=== PATIENT | female | born 1995 ===

== ENCOUNTER 2016-08-28 13:19 | Emergency (ER) | payer BC, OTHER ==
[~2016-08-28] VITALS: Ht 162.6 cm; Wt 84.2 kg
[2016-08-28] MEDS ORDERED: ARIP5TAB5 PO (13:41)
[2016-08-28] MEDS ORDERED: ESCI10TA PO (13:41)
[2016-08-28] MEDS ORDERED: HYDROmorphone 1 MG/ML (DILAUDID) SYRINGE IV ONE (14:10)
[2016-08-28] MEDS ORDERED: SODIUM CHLORIDE FLUSH 10 ML SYR IV PRN (14:10)
[2016-08-28] MEDS ORDERED: ONDANSETRON 2 MG/ML (Z0FRAN) 2 ML VIAL IV ONE ×2 (14:10→17:10)
[2016-08-28] MEDS ORDERED: SODIUM CHLORIDE FLUSH 3 ML SYR IV PRN (14:10)
[2016-08-28 14:32] LABS: MEAN CORPUSCULAR HEMOGLOBIN 29.2 PG (26.0-34.0); MEAN CORPUSCULAR VOLUME 82 FL (80-100); MEAN PLATELET VOLUME 10.5 FL (6.0-9.5); PLATELET COUNT 376 10^3uL (150-450); WHITE BLOOD COUNT 20.75 10^3uL (4.0-11.0)
[2016-08-28 14:41] LABS: BAND NEUTROPHILS % 6 % (0-6); EOSINOPHILS % 0 % (0-4); LYMPHOCYTES # 1.9 #; MEAN CORPUSCULAR HGB CONC 35.5 g/dL (31.0-37.0); MONOCYTES # 0.4 #; MONOCYTES % 2 % (3-11); RBC MORPH NORMAL (NORMAL); SEGMENTED NEUTROPHILS % 83 % (51-67); TOTAL CELLS COUNTED 100
[2016-08-28 14:43] LABS: ALBUMIN 5.4 g/dL (3.4-5.0); ANION GAP 22.5 MEQ/L (3-15); CALCULATED IONIZED CALCIUM 3.7 mg/dL (3.8-4.6); TOTAL PROTEIN 9.5 g/dL (6.4-8.5)
[2016-08-28 16:11] LABS: BILIRUBIN,URINE Negative (Negative); COLOR,URINE Yellow; GLUCOSE, URINE (UA) Negative (Negative); LEUKOCYTE ESTERASE ,URINE Negative (Negative); PH,URINE 5.5 (5.0 - 8.0); UROBILINOGEN,URINE 0.2 mg/dL (0.2-1.0)
--- NOTE | 2016-08-28 16:56 | Diagnostic Imaging Report ---
INDICATION: Abdominal Pain. EXAM: Abdominal series performed in routine fashion with a frontal chest radiograph and supine upper abdominal films. FINDINGS: The heart and mediastinal silhouette are normal in appearance. The lungs are clear. There is no pneumothorax or pleural fluid. There is no free intraperitoneal air. The abdominal bowel gas pattern is nonspecific with no sign of obstruction. There are no suspicious calcifications. There are surgical clips in the right upper quadrant. IMPRESSION: No sign of free air or bowel obstruction. No acute pulmonary infiltrate. Evidence of previous cholecystectomy. Dictated by: Dictated on workstation # [id number]
[2016-08-28 17:38] LABS: CLARITY,URINE Slightly Cloudy
[2016-08-28 18:07] VITALS: BP 122/22
[2016-08-28] MEDS ORDERED: PROMETHAZINE HCL INJ 12.5 MG in SODIUM CHLORIDE 25 ML IV PRN (18:10)
[2016-08-28] MEDS ORDERED: ACETAMINOPHEN 325 MG TAB (TYLENOL) PO PRN (18:10)
[2016-08-28] MEDS ORDERED: NICOTINE 21 MG (NICODERM) PATCH TD SCH (18:10)
[2016-08-28] MEDS ORDERED: ONDANSETRON 4 MG (ZOFRAN) ORAL DISSOLVE TAB PO PRN (18:10)
[2016-08-28] MEDS ORDERED: MAG HYDROX/AL HYDROX/SIMETH 200-200-20/5 ML (MAG-AL PLUS) 30 ML UDC PO PRN (18:10)
[2016-08-28] MEDS ORDERED: CALCIUM CARBONATE CHEWABLE 300 MG (TUMS) TABLET PO PRN (18:10)
[2016-08-28] MEDS ORDERED: GI COCKTAIL 55 ML UDC PO ONE (18:25)
--- NOTE | 2016-08-28 18:34 | History and Physical (E) ---
History & Physical PCP: Carrie Vega MD [address] [place] [address] CC: Nausea/vomiting HPI Annabelle Hoyos is a 21 year old female admitted from ED 08/28 where she presented with complaint of nausea/vomiting since this AM. In ED, afebrile, HR 105, RR 18, BP 149/96. WBC 20.75 with 83% N and 6% B. Na elevated at 152. Transaminases not elevated. Lipase normal. Serum negative. UA is still pending. Acute abdominal series was unremarkable. She was given NS bolus, hydromorphone, ondansetron. On arrival to unit, awake, alert, interactive, oriented. Says symptoms started suddenly this AM around 0900. Had not had anything for breakfast. Last meal was the night prior, chicken wings and salad. No leftovers consumed recently. No exposure to sick contacts. No recent travel. Has had similar symptoms before, "stomach flu." Abdominal pain is mid-epigastric and started after she started vomiting. No fever. Has felt chilled. Diarrhea but not bloody. No rash. Was just seen by PCP 1 week ago for UTI symptoms. PCP checked UA but culture didn't come back until Thursday and antibiotic (Augmentin) was prescribed on Thursday. Patient states she has already taken 5 doses. PMH * UTI 07/2016 * Depression * tobacco abuse PSH * tonsillectomy * cholecystectomy ALLERGIES: Please see list at end of report. HOME MEDICATIONS: Please see list at end of report. FH Mom is healthy. Has arthritis. Father is healthy. SH Lives with step-mother in [place]. Just recently moved there from [place]. Smokes. Drinks alcohol occasionally. No drug use currently but has used marijuana and cocaine in the past. No children. Works at [employer]. ROS CONSTITUTION: Denies weight loss or gain. HEENT: No change in vision or hearing. No sores in mouth, sore throat. CV: No chest pain, palpitations. PULM: Some congestion, cough. GI: Per HPI, exam. : No dysuria. LMP approximately 08/18/2016. MS: No new muscle or joint aches and pains. NEURO: No numbness or tingling. No weakness. INTEG: No rashes, lesions, or sores. ENDO: No heat or cold intolerance. No polydipsia or polyuria. HEME/LYMPH: No easy bruising or bleeding. No swollen glands. PSYCH: No change in mood or behavior. OBJECTIVE Vital Signs Date Time Temp Pulse Resp B/P Pulse Ox O2 Delivery O2 Flow Rate FiO2 08/28/16 17:13 101 16 117/70 98 08/28/16 13:20 96.8 Room Air GEN: Awake, alert, oriented, NAD at present. HEENT: EOMI, clear sclerae, dry oral mucosa. CV: RRR S1 S2 normal with no murmur LUNGS: CTA B ABD: Mild epigastric tenderness to palpation. Hypoactive bowel sounds. EXTR: No C/C/E. Normal peripheral pulses. INTEG: No rash. NEURO: No focal motor neuro deficit. Weight: 83.7 kg Laboratory Results-14 Days 08/28/16 14:20: Absolute Band Neutrophils 1.2, Alanine Aminotransferase (ALT/SGPT) 35, Albumin 5.4H, Albumin/Globulin Ratio 1.317, Alkaline Phosphatase 101, Anion Gap 22.5H, Aspartate Amino Transf (AST/SGOT) 27, BUN/Creatinine Ratio 12, Band Neutrophils % 6, Basophils # (Auto) , Basophils # (Manual) 0.0, Basophils % (Manual) 0, Basophils (%) (Auto) , Blood Morphology Comment Normal, Blood Urea Nitrogen 10, Calcium Level 10.0, Calcium/Ionized Calcium Ratio 3.7L, Calculated Osmolality 292, Carbon Dioxide Level 28, Chloride Level 105, Creatinine 0.84, Differential Total Cells Counted 100, Eosinophils # 0.0, Eosinophils # (Auto) , Eosinophils % (Manual) 0, Eosinophils (%) (Auto) , Estimat Glomerular Filtration Rate 101.7 , Estimated GFR (Non- 84.0, Glucose Level 118H, Hematocrit 44.50 , Hemoglobin 15.8H, Lipase 57, Lymphocytes # 1.9, Lymphocytes # (Auto) , Lymphocytes % (Manual) 9L, Lymphocytes (%) (Auto) , Mean Corpuscular Hemoglobin 29.2, Mean Corpuscular Hemoglobin Concent 35.5, Mean Corpuscular Volume 82, Mean Platelet Volume 10.5H, Monocytes # 0.4, Monocytes # (Auto) , Monocytes % ( Manual) 2L, Monocytes (%) (Auto) , Neutrophils # 17.2, Neutrophils # (Auto) , Neutrophils (%) (Auto) , Platelet Count 376, Potassium Level 4.1, Red Blood Count 5.42H, Red Cell Distribution Width 13.3, Segmented Neutrophils % 83H, Serum Test, Qualitative Negative, Sodium Level 152H, Total Bilirubin 0.6, Total Protein 9.5H, Urine Bilirubin [Pending], Urine Blood [Pending], Urine Clarity [Pending], Urine Collection Type [Pending], Urine Color [Pending] , Urine Glucose (UA) [Pending], Urine Ketones [Pending], Urine Leukocyte Esterase [Pending], Urine Nitrite [Pending], Urine Protein [Pending], Urine Specific [place] [Pending], Urine Urobilinogen [Pending], Urine pH [Pending], White Blood Count 20.75H IMAGING 08/28/16 ACUTE ABD SERIES INDICATION: Abdominal Pain. EXAM: Abdominal series performed in routine fashion with a frontal chest radiograph and supine upper abdominal films. FINDINGS: The heart and mediastinal silhouette are normal in appearance. The lungs are clear. There is no pneumothorax or pleural fluid. There is no free intraperitoneal air. The abdominal bowel gas pattern is nonspecific with no sign of obstruction. There are no suspicious calcifications. There are surgical clips in the right upper quadrant. IMPRESSION: No sign of free air or bowel obstruction. No acute pulmonary infiltrate. Evidence of previous cholecystectomy. ASSESSMENT Annabelle Hoyos is a 21 year old female admitted from ED 08/28 with nausea, vomiting, abdominal pain, dehydration, leukocytosis, and diarrhea, all attributed to gastroenteritis based on findings and history. She was admitted for rehydration and symptom control. PLAN * SIRS: Treat underlying problems. * Gastroenteritis: Supportive care. * Dehydration: NS bolus given in ED. Additional liter maintenance. * Nausea/Vomiting: Ondansetron, promethazine * Abdominal Pain: Ketorolac, acetaminophen. Trial GI cocktail. * F/E/N: IVF as above. Liquid diet, advance as tolerated. * Prophylaxis: Ambulate * Code Status: Full * Dispo: observation. Likely discharge in AM if improving. CHRONIC * Depression: Citalopram (sub for escitalopram), aripiprazole * Tobacco abuse: nicotine patch. 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 NETTIE GARCIA MD Aug 28, 2016 17:33
[2016-08-28 18:35] VITALS: BP_SYST 122; BP_DIAS 22; BP_DIAS 72
[2016-08-28] MEDS: KETOROLAC 15 MG/ML (TORADOL) 1 ML VIAL IV PRN (18:51)
[2016-08-28] MEDS ORDERED: MAG HYDROX/AL HYDROX/SIMETH 400-400-40/5 ML (MAG-AL PLUS XS) 30 ML UDC ONE (19:31)
[2016-08-28] MEDS ORDERED: BELLADONNA/PHENOBARBITAL ELIXIR (DONNATAL) 10 ML UDC ONE (19:32)
[2016-08-28] MEDS ORDERED: LIDOCAINE 2% VISCOUS 20ML UDC PO ONE (19:32)
[2016-08-29 00:19] VITALS: BP 103/59
[2016-08-29] MEDS: ONDANSETRON 2 MG/ML (Z0FRAN) 2 ML VIAL IV PRN ×2 (02:34→08:10)
[2016-08-29] MEDS: KETOROLAC 15 MG/ML (TORADOL) 1 ML VIAL IV PRN (02:34)
[2016-08-29] MEDS ORDERED: SODIUM CHLORIDE FLUSH 10 ML SYR IV PRN ×2 (02:40→14:10)
[2016-08-29] MEDS ORDERED: SODIUM CHLORIDE FLUSH 3 ML SYR IV PRN ×2 (02:40→14:10)
[2016-08-29 06:23] LABS: BASOPHILS % (AUTO) 0 % (0-2); EOSINOPHILS # (AUTO) 0.1 10^3uL; EOSINOPHILS % (AUTO) 1 % (0-4); LYMPHOCYTES # (AUTO) 2.9 X10^3; MEAN CORPUSCULAR HEMOGLOBIN 29.8 PG (26.0-34.0); MEAN CORPUSCULAR HGB CONC 35.2 g/dL (31.0-37.0); MEAN CORPUSCULAR VOLUME 85 FL (80-100); MEAN PLATELET VOLUME 11.2 FL (6.0-9.5); MONOCYTES # (AUTO) 0.9 X10^3; MONOCYTES % (AUTO) 7 % (3-11); NEUTROPHILS # (AUTO) 8.9 X10^3; NEUTROPHILS % (AUTO) 69 % (51-67); PLATELET COUNT 246 10^3uL (150-450); WHITE BLOOD COUNT 12.83 10^3uL (4.0-11.0)
[2016-08-29 06:52] LABS: ALBUMIN 3.4 g/dL (3.4-5.0); ANION GAP 9.4 MEQ/L (3-15)
[2016-08-29] MEDS ORDERED: AC325T PO (07:31)
[2016-08-29] MEDS ORDERED: ONDAN4ODT PO (07:31)
--- NOTE | 2016-08-29 07:40 | Discharge Instructions (E) ---
Discharge Instructions Instructions * You were evaluated and treated for abdominal pain, nausea/vomiting, and diarrhea, all likely due to gastroenteritis. This is commonly caused by a virus but in some cases can be bacterial. Symptoms should resolve on their own and you should much better in the next two days. * Be sure to drink plenty of fluids. Your appetite will return gradually. * Be sure to use good jubj-bji-nwdph hand washing to avoid spreading infection to others. * Quitting smoking is one of the best things you can do for your health. Talk to your doctor about ways she can help. Review the provided handout for details. Activity Instructions As tolerated. Doctor's Appointment Follow-up with your primary care doctor as needed. Discharge Diet: Regular NETTIE GARCIA MD Aug 29, 2016 07:35
[2016-08-29 07:46] VITALS: BP 110/60
[2016-08-29] MEDS ORDERED: POTASSIUM CHLORIDE ER 20 MEQ TABLET PO ONE (07:50)
[2016-08-29] MEDS ORDERED: NICOTINE PATCH REMOVAL TOP SCH (08:59)
[2016-08-29] MEDS ORDERED: ARIPIPRAZOLE 5 MG PO SCH (09:00)
[2016-08-29] MEDS ORDERED: CITALOPRAM 10 MG (CELEXA) TABLET PO SCH (09:00)
--- NOTE | 2016-08-30 15:53 | Discharge Summary (E) ---
Discharge Summary (E) Admit Date/Time Aug 28, 2016 at 17:33 Discharge Date/Time Aug 29, 2016 at 09:55 Admitting Provider Nettie Hewitt MD Primary Care Provider Carrie Vega MD [address] [place] [address] [address] [place] [address] Attending Provider Nettie Hewitt MD Consulting Provider History and Present Illness Annabelle Hoyos is a 21 year old female admitted from ED 08/28 with nausea, vomiting, abdominal pain, dehydration, leukocytosis, and diarrhea, all attributed to gastroenteritis based on findings and history. She was admitted for rehydration and symptom control. She improved rapidly with supportive care and was discharged home in improved, stable condition. Hospital Course and Treatment * SIRS: Resolved. Treated underlying problems. * Gastroenteritis: Supportive care. Handouts provided. * Dehydration: NS bolus given in ED. Additional liter maintenance. * Nausea/Vomiting: Ondansetron, promethazine. * Abdominal Pain: Ketorolac, acetaminophen. Trial GI cocktail was helpful. * UTI: Diagnosed prior to admit. She had already taken 5 doses of amox/clav. No evidence of UTI on this admit, so suggested she did not need any more antibiotic. * F/E/N: IVF as above. Liquid diet, advanced as tolerated. * Prophylaxis: Ambulate * Code Status: Full * Dispo: observation. Discharged home. CHRONIC * Depression: Citalopram (sub for escitalopram), aripiprazole * Tobacco abuse: nicotine patch. 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 HEENT: EOMI, clear sclerae, dry oral mucosa. CV: RRR S1 S2 normal with no murmur LUNGS: CTA B ABD: Mild epigastric tenderness to palpation, improved since admit. Active bowel sounds. EXTR: No C/C/E. Normal peripheral pulses. INTEG: No rash. NEURO: No focal motor neuro deficit. Laboratory/Radiology Data WBC 20.75 on admit, improved to 12.83 before discharge with no bandemia. Na 152 on admit but improved with IVF to 140. K 3.3 so PO supplement was given prior to discharge. UA negative for evidence of UTI. Discharge Disposition Discharged home. Instructions * You were evaluated and treated for abdominal pain, nausea/vomiting, and diarrhea, all likely due to gastroenteritis. This is commonly caused by a virus but in some cases can be bacterial. Symptoms should resolve on their own and you should much better in the next two days. * Be sure to drink plenty of fluids. Your appetite will return gradually. * Be sure to use good oooc-hgy-xrfmn hand washing to avoid spreading infection to others. * Quitting smoking is one of the best things you can do for your health. Talk to your doctor about ways she can help. Review the provided handout for details. Activity Instructions As tolerated. Appointments Follow-up with your primary care doctor as needed. Discharge Diet: Regular Discharge Medications New Medications: Acetaminophen (Acetaminophen) 325 Mg Tablet 650 MG PO Q6H PRN PAIN #0 Ref 0 TAB Ondansetron HCl (Zofran ODT) 4 Mg Tab.rapdis 4 MG PO Q6HR PRN NAUSEA #15 Ref 0 TAB Continued Medications: Aripiprazole (Abilify) 5 Mg Tablet 5 MG PO DAILY TAB Escitalopram Oxalate (Lexapro) 10 Mg Tablet 10 MG PO DAILY TAB Discharge Diagnosis See list above. Problems: Copies to: End of Report . NETTIE HEWITT MD Aug 30, 2016 15:49
== END 2016-08-29 09:55 | disposition home or self-care (01) ==
LOC: ED 13:30 → MED/SURG 17:33 → UNDOADMOB 17:33 → MED/SURG 17:34 → UNDODISOB 08-29 09:55
PROVIDERS: ADMIT Internal Medicine; ATTEND Internal Medicine
DX: K52.9 Noninfective gastroenteritis and colitis, unspecified (principal); E86.0 Dehydration; D72.820 Lymphocytosis (symptomatic); R19.7 Diarrhea, unspecified; R11.2 Nausea with vomiting, unspecified; F17.210 Nicotine dependence, cigarettes, uncomplicated
CPT/HCPCS: 36415; 74022; 80053; 80069; 81003; 83690; 84703; 85025; 86140; 96361; 96374; 96375; 96376; 99218; 99284; J1170; J1885; J2405; J7030

== ENCOUNTER 2016-10-07 22:23 | Emergency (ER) | payer BC ==
[~2016-10-07] VITALS: Ht 162.6 cm; Wt 73.0 kg
[~2016-10-07 22:23] MED LIST: AC325T PO; ARIP5TAB5 PO; ESCI10TA PO; ONDAN4ODT PO
--- OUTSIDE RECORDS SUMMARY | 2016-10-07 22:28 | XMS REPORT | Continuity of Care Document ---
Author Author [facility] Address Unknown Phone Unavailable Support Name Relationship Address Phone NETTIE GARCIA MD Caregiver [address] [place] [address] LOTUS PORTILLO MD Caregiver [address] [place], [place] [address] ROMAIN EVONNE Next Of Kin [phone] [place], [place] [address] Insurance Providers Payer Name Policy Number Subscriber Name Relationship [facility] [id number] Keely Lion 19 Mother Other1 [id number] RomainNancyd Ary 19 Father Advance Directives Directive Response Recorded Date/Time Advanced Directives No 08/28/16 6:42pm Chief Complaint and Reason for Visit Chief Complaint HYPERNATREMIA, VOMITING Reason for Visit Gastroenteritis Problems Active Problems Medical Problem Onset Date Status Gastroenteritis Unknown Acute Medications Current Home Medications Medication Dose Units Route Directions Days/Qty Instructions Start Date Escitalopram Oxalate 10 Mg 10 Mg ORAL Daily 08/28/16 Aripiprazole 5 Mg 5 Mg ORAL Daily 08/28/16 Acetaminophen (Tylenol) 325 Mg 650 Mg ORAL Every 6 Hours as needed for Pain 0 08/29/16 Ondansetron Hcl 4 Mg 4 Mg ORAL Every 6 Hr On Schedule as needed for Nausea 15 08/29/16 Social History Query Response Start Date Stop Date Smoking Status Current every day smoker Hospital Discharge Instructions Patient's Instructions Instructions Instructions * You were evaluated and treated for abdominal pain, nausea/vomiting, and diarrhea, all likely due to gastroenteritis. This is commonly caused by a virus but in some cases can be bacterial. Symptoms should resolve on their own and you should much better in the next two days. * Be sure to drink plenty of fluids. Your appetite will return gradually. * Be sure to use good [id number]-[id number] hand washing to avoid spreading infection to others. * Quitting smoking is one of the best things you can do for your health. Talk to your doctor about ways she can help. Review the provided handout for details. Activity Instructions As tolerated. Doctor's Appointment Follow-up with your primary care doctor as needed. Discharge Diet: Regular Orders DISCHARGE: Discharge to:: HOME Home, Self Care Plan of Care Discharge Date 08/29/16 9:55am Disposition 01 HOME OR SELF-CARE Instructions/Education Provided Ondansetron Smoking: Not Just Harmful to Your Lungs and Heart Dangers of Secondhand Smoke Quitting Smoking for Teens and Young Adults Viral Gastroenteritis, Adult (DC) Prescriptions See Medication Section Care Plan and Goals See Discharge Instructions Section Functional Status Query Response Date Recorded Level of Conscious Alert Oriented x4 August 29, 2016 8:16am Movement Moves extremities August 29, 2016 8:16am Allergies, Adverse Reactions, Alerts No known allergies. Immunizations No immunization records. Vital Signs Acute Vital Signs Vital Response Date/Time Temperature (Fahrenheit) 98.6 08/29/2016 7:46am Pulse 89 bpm 08/29/2016 7:46am Respirations 16 08/29/2016 7:46am Height 5 ft 4 in Weight 185 lb Body Mass Index 31.0 kg/m^2 Results Laboratory Results Test Name Result Units Flags Reference Collection Date/Time Result Date/ Time Comments White Blood Count 12.83 10^3uL H 4.0-11.0 08/29/2016 5:40am 08/29/2016 6 :47am Red Blood Count 4.16 10^6uL 4.00-5.00 08/29/2016 5:40am 08/29/2016 6: 47am Hemoglobin 12.4 g/dL 12.0-15.5 08/29/2016 5:40am 08/29/2016 6:47am Hematocrit 35.20 % 35.00-45.00 08/29/2016 5:40am 08/29/2016 6:47am Mean Corpuscular Volume 85 FL 80-100 08/29/2016 5:40am 08/29/2016 6: 47am Mean Corpuscular Hemoglobin 29.8 PG 26.0-34.0 08/29/2016 5:40am 2016 6:47am Mean Corpuscular Hemoglobin Concent 35.2 g/dL 31.0-37.0 08/29/2016 5: 40am 08/29/2016 6:47am Red Cell Distribution Width 13.3 % 11.8-15.6 08/29/2016 5:40am 2016 6:47am Platelet Count 246 10^3uL 150-450 08/29/2016 5:40am 08/29/2016 6:47am Mean Platelet Volume 11.2 FL H 6.0-9.5 08/29/2016 5:40am 08/29/2016 6: 47am Neutrophils (%) (Auto) 69 % H 51-67 08/29/2016 5:40am 08/29/2016 6:47am Lymphocytes (%) (Auto) 22 % 20-46 08/29/2016 5:40am 08/29/2016 6:47am Monocytes (%) (Auto) 7 % 3-11 08/29/2016 5:40am 08/29/2016 6:47am Eosinophils (%) (Auto) 1 % 0-4 08/29/2016 5:40am 08/29/2016 6:47am Basophils (%) (Auto) 0 % 0-2 08/29/2016 5:40am 08/29/2016 6:47am Neutrophils # (Auto) 8.9 X10^3 08/29/2016 5:40am 08/29/2016 6:47am Lymphocytes # (Auto) 2.9 X10^3 08/29/2016 5:40am 08/29/2016 6:47am Monocytes # (Auto) 0.9 X10^3 08/29/2016 5:40am 08/29/2016 6:47am Eosinophils # (Auto) 0.1 10^3uL 08/29/2016 5:40am 08/29/2016 6:47am Basophils # (Auto) 0.0 10^3uL 08/29/2016 5:40am 08/29/2016 6:47am Differential Total Cells Counted 100 08/28/2016 2:20pm 08/28/2016 2 :41pm Segmented Neutrophils % 83 % H 51-67 08/28/2016 2:20pm 08/28/2016 2: 41pm Band Neutrophils % 6 % 0-6 08/28/2016 2:20pm 08/28/2016 2:41pm Lymphocytes % (Manual) 9 % L 20-46 08/28/2016 2:20pm 08/28/2016 2:41pm Monocytes % (Manual) 2 % L 3-11 08/28/2016 2:20pm 08/28/2016 2:41pm Eosinophils % (Manual) 0 % 0-4 08/28/2016 2:20pm 08/28/2016 2:41pm Basophils % (Manual) 0 % 0-2 08/28/2016 2:20pm 08/28/2016 2:41pm Neutrophils # 17.2 # 08/28/2016 2:20pm 08/28/2016 2:41pm Absolute Band Neutrophils 1.2 # 08/28/2016 2:20pm 08/28/2016 2:41pm Lymphocytes # 1.9 # 08/28/2016 2:20pm 08/28/2016 2:41pm Monocytes # 0.4 # 08/28/2016 2:20pm 08/28/2016 2:41pm Eosinophils # 0.0 # 08/28/2016 2:20pm 08/28/2016 2:41pm Basophils # (Manual) 0.0 # 08/28/2016 2:20pm 08/28/2016 2:41pm Blood Morphology Comment NORMAL NORMAL 08/28/2016 2:20pm 08/28/2016 2 :41pm Urine Collection Type CLEAN CATCH 08/28/2016 2:20pm 08/28/2016 7: 28pm Urine Color Yellow 08/28/2016 2:20pm 08/28/2016 5:38pm Urine Clarity Slightly Cloudy 08/28/2016 2:20pm 08/28/2016 5:38pm Urine pH 5.5 5.0 - 8.0 08/28/2016 2:20pm 08/28/2016 5:38pm Urine Specific [place] 1.020 1.005-1.030 08/28/2016 2:20pm 2016 5:38pm Urine Protein Negative Negative 08/28/2016 2:20pm 08/28/2016 5:38pm Urine Glucose (UA) Negative Negative 08/28/2016 2:20pm 08/28/2016 5: 38pm Urine Blood Negative Negative 08/28/2016 2:20pm 08/28/2016 5:38pm Urine Ketones Negative Negative 08/28/2016 2:20pm 08/28/2016 5:38pm Urine Nitrite Negative Negative 08/28/2016 2:20pm 08/28/2016 5:38pm Urine Bilirubin Negative Negative 08/28/2016 2:20pm 08/28/2016 5: 38pm Urine Urobilinogen 0.2 mg/dL 0.2-1.0 08/28/2016 2:20pm 08/28/2016 5: 38pm Urine Leukocyte Esterase Negative Negative 08/28/2016 2:20pm 2016 5:38pm Sodium Level 140 mmol/L # 135-150 08/29/2016 5:40am 08/29/2016 6:55am Potassium Level 3.3 mmol/L L 3.5-5.1 08/29/2016 5:40am 08/29/2016 6: 55am Chloride Level 107 mmol/L 98-108 08/29/2016 5:40am 08/29/2016 6:55am Carbon Dioxide Level 27 mmol/L 22-29 08/29/2016 5:40am 08/29/2016 6: 55am Anion Gap 9.4 MEQ/L 3-15 08/29/2016 5:40am 08/29/2016 6:55am Blood Urea Nitrogen 13 mg/dL 7-18 08/29/2016 5:40am 08/29/2016 6:55am Creatinine 0.74 mg/dL 0.6-1.2 08/29/2016 5:40am 08/29/2016 6:55am BUN/Creatinine Ratio 12 10-20 08/28/2016 2:20pm 08/28/2016 2:45pm Estimat Glomerular Filtration Rate 117.7 08/29/2016 5:40am 2016 6:55am Estimated GFR (Non- 97.3 08/29/2016 5:40am 2016 6:55am Glucose Level 83 mg/dL # 70-110 08/29/2016 5:40am 08/29/2016 6:55am Calculated Osmolality 292 mosm/L 280-300 08/28/2016 2:20pm 08/28/2016 2 :45pm Calcium Level 8.3 mg/dL # L 8.8-10.8 08/29/2016 5:40am 08/29/2016 6:55am Calcium/Ionized Calcium Ratio 3.7 mg/dL L 3.8-4.6 08/28/2016 2:20pm 07/2016 2:45pm Phosphorus Level 2.2 mg/dL L 2.4-4.9 08/29/2016 5:40am 08/29/2016 6: 55am Total Bilirubin 0.6 mg/dL 0.1-1.0 08/28/2016 2:20pm 08/28/2016 2:45pm Alkaline Phosphatase 101 U/L 38-126 08/28/2016 2:20pm 08/28/2016 2: 45pm Aspartate Amino Transf (AST/SGOT) 27 U/L 15-37 08/28/2016 2:20pm 2016 2:45pm Alanine Aminotransferase (ALT/SGPT) 35 U/L 30-65 08/28/2016 2:20pm 07/2016 2:45pm Total Protein 9.5 g/dL H 6.4-8.5 08/28/2016 2:20pm 08/28/2016 2:45pm Albumin 3.4 g/dL # 3.4-5.0 08/29/2016 5:40am 08/29/2016 6:55am Albumin/Globulin Ratio 1.317 1.1-1.8 08/28/2016 2:20pm 08/28/2016 2: 45pm Lipase 57 U/L 23-300 08/28/2016 2:20pm 08/28/2016 2:45pm C-Reactive Protein 0.90 mg/dL 0.0-0.9 08/29/2016 5:40am 08/29/2016 6: 55am Procedures No known history of procedures. Encounters Encounter Location Arrival/Admit Date Discharge/Depart Date Attending Provider Admitted Inpatient (obs) [facility] 08/28/16 5:33pm NETTIE GARCIA MD Recent Diagnosis Gastroenteritis
[2016-10-07 23:43] LABS: BASOPHILS % (AUTO) 1 % (0-2); EOSINOPHILS # (AUTO) 0.4 10^3uL; EOSINOPHILS % (AUTO) 3 % (0-4); LYMPHOCYTES # (AUTO) 4.5 X10^3; MEAN CORPUSCULAR HEMOGLOBIN 28.2 PG (26.0-34.0); MEAN CORPUSCULAR VOLUME 85 FL (80-100); MEAN PLATELET VOLUME 11.1 FL (6.0-9.5); MONOCYTES # (AUTO) 0.9 X10^3; MONOCYTES % (AUTO) 7 % (3-11); NEUTROPHILS # (AUTO) 6.8 X10^3; NEUTROPHILS % (AUTO) 53 % (51-67); PLATELET COUNT 295 10^3uL (150-450); WHITE BLOOD COUNT 12.75 10^3uL (4.0-11.0)
[2016-10-07 23:59] LABS: ALBUMIN 4.7 g/dL (3.4-5.0); ALKALINE PHOSPHATASE 78 U/L (38-126); ANION GAP 15.5 MEQ/L (3-15); BUN/CREATININE RATIO 14 (10-20); CALCULATED IONIZED CALCIUM 4.1 mg/dL (3.8-4.6); TOTAL PROTEIN 8.3 g/dL (6.4-8.5)
[2016-10-08 00:09] LABS: BILIRUBIN,URINE Negative (Negative); CLARITY,URINE Clear; COLOR,URINE Yellow; GLUCOSE, URINE (UA) Negative (Negative); LEUKOCYTE ESTERASE ,URINE Negative (Negative); UROBILINOGEN,URINE 0.2 mg/dL (0.2-1.0)
[2016-10-08 00:14] LABS: HCG,QUALITATIVE URINE Negative (Negative); URINE CENTRIFUGED VOLUME 12 mL
[2016-10-08 00:22] LABS: RBC,URINE 0-2 /HPF
[2016-10-08 00:23] LABS: AMPHETAMINE SCREEN, URINE Negative (Negative); CANNABINOID SCREEN, URINE Negative (Negative); METHAMPHETAMINE SCREEN URINE S NEGATIVE (NEGATIVE); OPIATE SCREEN URINE Negative (Negative); PROPOXYPHENE STAT NEGATIVE (NEGATIVE)
--- NOTE | 2016-10-08 01:08 | NUR ---
Spoke with [facility] hotline and a screener called back to let RN know pt does meet criteria for inpt and this RN needs to make the call to see if there are any beds available for pt
--- NOTE | 2016-10-08 01:12 | NUR ---
RN called [facility] and will fax the information to them and wait to hear back regarding pt possible admission to them
--- NOTE | 2016-10-08 01:37 | NUR ---
Spoke with patient and asked her if she was to leave here tonight would she go home and take some pills or attempt to hurt herself, she stated yes she would go home and take some pills and try to hurt herself.
[2016-10-08 02:36] VITALS: BP 120/83
== END 2016-10-08 02:43 | disposition short-term general hospital (02) ==
LOC: ED 22:25
DX: F32.89 Other specified depressive episodes (principal)
CPT/HCPCS: 36415; 80053; 80307; 80320; 80329; 81003; 81015; 81025; 85025; 99282; 99284